=== PATIENT | female | born 1980 | race Hispanic/Latino ===

== ENCOUNTER → 2020-07-11 08:45 | Outpatient (CLI) | payer BC, SELFPAY ==
--- NOTE | ~2020-07-11 | MM_ITS ---
EXAMINATION: MM screening peter BI w santa HISTORY: Screening mammogram TECHNIQUE: Craniocaudal and mediolateral oblique 3-D tomosynthesis images were obtained and synthetic 2-D images were generated. CAD analysis was submitted and interpreted. COMPARISON: No prior mammogram is available for comparison at this institution. BREAST PARENCHYMAL COMPOSITION: The breasts are heterogeneously dense, which may obscure small masses . FINDINGS: There is no evidence of suspicious mass, calcification, or architectural distortion to sugg est malignancy in either breast. There has been no suspicious interval change. IMPRESSION: 1. No mammographic evidence of malignancy. 2. Recommend routine screening mammography in one year. BI-RADS Category 1: Negative Reviewed, dictated and finalized at location A.
== END ==
PROVIDERS: Visit Provider Nurse Practitioner Obstetrics & Gynecology
DX: Z12.31 Encounter for screening mammogram for malignant neoplasm of breast (principal)
CPT/HCPCS: 77063; 77067

== ENCOUNTER → 2021-12-03 12:22 | Outpatient (CLI) | payer BC, SELFPAY ==
--- NOTE | ~2021-12-03 | MM_ITS ---
EXAMINATION: MM screening peter BI w santa HISTORY: Screening mammogram TECHNIQUE: Craniocaudal and mediolateral oblique 3-D tomosynthesis images were obtained and synthetic 2-D images were generated. CAD analysis was submitted and interpreted. COMPARISON: 07/11/2020 BREAST PARENCHYMAL COMPOSITION: The breasts are heterogeneously dense, which may obscure small masses . FINDINGS: There is no suspicious mass, calcification, or architectural distortion to suggest malignan cy in either breast. There has been no suspicious interval change. IMPRESSION: 1. No mammographic evidence of malignancy. 2. Recommend routine screening mammography in one year. BI-RADS Category 1: Negative Reviewed, dictated and finalized at location A.
== END ==
PROVIDERS: PCP Chiropractor; Visit Provider Family Medicine
DX: Z12.31 Encounter for screening mammogram for malignant neoplasm of breast (principal)
CPT/HCPCS: 77063; 77067

== ENCOUNTER 2022-05-11 00:46 | Day surgery (SDC) | payer BC, SELFPAY ==
[2022-04-30 14:41] VITALS: BMI 30.1
--- NOTE | 2022-04-30 14:49 | PC.NURSE ---
Report to the Outpatient Waiting Room, entrance under the green pavilion located off [facility], at time 0800 on date 05/11/22. Planned Procedure Time: 1000. Time changes happen often and if your time is changed the preop area will call you the afternoon before. - You and your visitor will be asked to self-screen and do not enter if you have any COVID symptoms. - Only one visitor is requested with a max of two and NO children visitors are allowed at this time. - The patient visitor may be requested to leave or wait in car when not with patient due to distancing restrictions. - A mask is optional within the hospital at this time. Patients may have clear liquids (water, carbonated beverages, clear teas, apple juice) until 3 hours prior to surgery with a maximum of 20 ounces. - No food from midnight until time of surgery Take the following medications with a SIP of water the morning of surgery: THYROID DO NOT STOP ANY OF YOUR OTHER PRESCRIPTION MEDICATIONS PRIOR TO SURGERY?EXCEPT THE FOLLOWING Medications to discontinue per physician: N/A Date to take last dose: N/A Please no make-up, nail tristanian, hairspray, perfume, deodorant, or body powder the day of surgery. No jewelry (including any body piercings) or valuables the day of surgery, leave them at home. Please take a shower or bath the night before, or the morning of, surgery with an antibacterial soap. Wear comfortable, loose fitting clothing. - Jewelry must be removed prior to entering the operating room. Rings and piercings that are not removed may be cut off. - The hospital will not accept responsibility for valuables. - Please leave all valuables, including medications, at home the day of surgery. If you are going home after surgery, a licensed truss driver helper must drive you home. - NO public transportation without another adult if you receive anesthesia. - We recommend that an adult stay with you for 24 hours following discharge. - We also recommend that you do not drive, make important decision, drink alcoholic beverages, or take any drugs that were not prescribed by your health care provider for at least 24 hours after your discharge time. Follow any additional instructions given to you from your surgeon. If you or anyone in your household have experienced Covid symptoms in the past week, please notify your surgeon or the nurse liaison at the phone number below for possible testing. Telephone instructions given to PT - ANAM ORTIZ and asked if any additional questions and then verbalized understanding. Patient advised to call surgeon office or pre surgery nurse liaison [phone] if any additional questions.
[2022-05-11] VITALS (10 sets, daily range): BP systolic 122–157; BP diastolic 80–102; PULSE 64–82; RESP 12–16; TEMP 36.4–36.9; O2SAT 100
[2022-05-11] MEDS: LACTATED RINGERS 1,000 ML 30 ML IV CONT ×2 (08:12→12:52)
[2022-05-11] MEDS: ACETAMINOPHEN 500 MG TABLET 1000 MG PO (08:12)
[2022-05-11] MEDS: KETOROLAC 15 MG/ML VIAL (*BKC) IV PUSH (08:13)
--- NOTE | 2022-05-11 08:43 | WPDANESEPPF ---
Anes - Initial Pre Proc Eval Procedure: Operation Date: 05/11/22 10:00 Proposed Procedures p Diagnostic Laparoscopy - Renyn Patel MD Date/Time: 05/11/22 08:43 Surgeon: Renny Patel MD Pre Op Diagnosis: Pelvic Mass Patient Data Age: 41 Gender: F Height: 1.52 m Weight: 69.75 kg Last Vital Signs Temp 36.4 C L 05/11/22 07:57 Pulse 76 05/11/22 07:57 Resp 16 05/11/22 07:57 BP 129/102 H 05/11/22 07:57 Pulse Ox 100 05/11/22 07:57 O2 Del Method Room Air 05/11/22 07:57 Allergies Allergy/AdvReac Type Severity Reaction Status Date / Time honey Allergy Anaphylaxis Verified 05/11/22 07:51 Home Medications Medication Instructions Recorded Confirmed Type norethindrone 1 mg-ethinyl 1 tablet PO DAILY 04/30/22 05/11/22 History estradiol 20 mcg (21)-iron 75 mg (7) tablet ([place] Fe /20 (28)) thyroid (pork) 90 mg tablet 90 mg PO DAILY 04/30/22 05/11/22 History ([place] Thyroid) Patient hx anesthesia problems: none Family hx anesthesia problems: none Results Review: All pre-operative results and documents have been reviewed as part of the pre-operative evaluation. [facility] Past Medical History Medical History (Updated 05/11/22 @ 08:43 by Baljinder Gaona MD) Obesity Surgical History Surgical History (Updated 05/11/22 @ 08:48 by Baljinder Gaona MD) H/O thyroidectomy History of section Social History Social History Smoking status: Never smoker Alcohol intake: current Alcohol use details: SPECIAL OCCASIONS Substance use: never Substance use type: does not use Living arrangements: with family Spiritual care concerns: No Anes - Eval Final PreProcedure Day of Procedure 05/11/22 08:43 Patient weight: obese Heart: regular rate and rhythm Lungs: clear to auscultation Airway: Mallampati scale class II Neurological: alert and oriented Last oral intake: >/= 8 hours ASA classification: II Emergent: no Anesthetic plan: proceed Anesthesia type and monitoring: general ETT and standard monitoring Results Review: All pre-operative results and documents have been reviewed as part of the pre-operative evaluation. Informed Consent: The patient's anesthetic plan and its attendant risks and benefits were discussed with the patient/family/POA. Questions were solicited and answers provided to the satisfaction of the patient/family/POA.
--- NOTE | 2022-05-11 10:40 | WPDHPUPDATE1 ---
History and Physical Update Update Date/Time: 05/11/22 10:40 History and Physical has been reviewed, including an updated exam of the patient. There are NO changes in the patient's condition. Risks, benefits, and alternatives have been discussed and questions answered. Patient agrees to proceed with procedure.
--- NOTE | 2022-05-11 10:57 | SUR.PREOP ---
0920 PT UPDATED ABOUT SURGERY TIME DELAY, WARM BLANKET GIVEN, DENIES ANY OTHER NEEDS.
--- NOTE | 2022-05-11 13:03 | W.PM.PROC2 ---
Procedure Note - Detailed Date of Procedure 05/11/22 Pre-op Diagnosis Pelvic Mass, dyspareunia Post-op Diagnosis Same ( endometriosis, paratubal cysts, multiple) Procedure Performed Radical resection of endometriosis. Surgeon Renny Patel MD Anesthesia General Indications Pelvic pain Findings bilateral posterior cul-de-sac endometriosis , multiple paratubal cysts, no masses. Description of Procedure The patient was taken to the operating room. She was prepped and draped in the dorsal lithotomy position after induction general anesthesia. A 5 mm incision was made with a scalpel on the abdominal skin in the left upper quadrant of the abdomen. A 5 mm trocar was inserted into the intra-abdominal cavity under direct visualization the scope. In the same fashion a 5 mm left lower quadrant trocar was inserted and a 5 mm infraumbilical trocar was inserted. ovaries were suspended bilaterally with stay sutures. These were placed with a Amador Yinka needle through the bilateral lower quadrant and were pushed through the ovary and they were suspended bilaterally and the sutures were held in place with hemostats. Resection the peritoneum in the bilateral posterior cul-de-sac was performed sharp and blunt dissection. The ureters were dissected out and intact from the pelvic brim to the uterine artery. All the peritoneum from the pelvic brim to the uterine artery and from the infundibulopelvic ligament to the and suspensory ligament the ovary to the rectum worse removed. This was all done with sharp and blunt dissection and the LigaSure. Paratubal cysts were left. At the end of this the suspensory sutures for the ovaries was removed. Interceed was placed over the bilateral hemipelvis ease. The pelvis was irrigated. The pneumoperitoneum was reduced. The trocars were removed. Skin was closed with subcuticular 4 micro. The patient's incisions were covered with Dermabond. She was taken recovery room in stable condition. Sponge lap and needle counts were correct x2. Estimated Blood Loss -20.0 Urine Output -100.0 Complications No immediate complications Condition Stable Disposition Same day
[2022-05-11] MEDS: fentaNYL CITRATE INJ (*CRX) 100 MCG/2 ML VIAL 25 MCG IV PUSH ×6 (13:23→14:14)
[2022-05-11] MEDS: oxyCODONE HCL (*CRX) 5 MG TAB IR PO (14:07)
[2022-05-11] MEDS: ONDANSETRON INJ 4 MG/2 ML VIAL IV PUSH (15:18)
== END 2022-05-11 15:31 | disposition home or self-care (01) ==
PROVIDERS: PCP Chiropractor; Visit Provider Obstetrics & Gynecology
PROC: (CPT 49320; principal; 2022-05-11 10:00)
DX: N80.329 Endometriosis of the posterior cul-de-sac, unspecified depth (principal); N83.8 Other noninflammatory disorders of ovary, fallopian tube and broad ligament; N94.10 Unspecified dyspareunia; E66.9 Obesity, unspecified; Z68.30 Body mass index [BMI] 30.0-30.9, adult
CPT/HCPCS: 58662; 88305; A9270; J1100; J1170; J1885; J2250; J2405; J2704; J2710; J3010; J7030; J7120

== ENCOUNTER → 2023-03-09 13:53 | Outpatient (CLI) | payer BC, SELFPAY ==
--- NOTE | ~2023-03-09 | MM_ITS ---
EXAMINATION: MM screening peter BI w santa HISTORY: Screening mammogram TECHNIQUE: Craniocaudal and mediolateral oblique 3-D tomosynthesis images were obtained and synthetic 2-D images were generated. CAD analysis was submitted and interpreted. COMPARISON: 12/03/2021, 07/11/2020 BREAST PARENCHYMAL COMPOSITION: The breasts are heterogeneously dense, which may obscure small masses . FINDINGS: No suspicious mass, calcification, or architectural distortion are identified in either lucia ast to suggest malignancy. There has been no suspicious interval change. IMPRESSION: 1. No mammographic evidence of malignancy. 2. Recommend routine screening mammography in one year. BI-RADS Category 1: Negative Reviewed, dictated and finalized at location A. [employer]
== END ==
PROVIDERS: PCP Family Medicine; Visit Provider Family Medicine
DX: Z12.31 Encounter for screening mammogram for malignant neoplasm of breast (principal)
CPT/HCPCS: 77063; 77067